=== PATIENT | male | born 1970 | race Two or more races ===

== ENCOUNTER 2025-03-16 12:00 | Emergency (ER) | payer MEDICAID, OTHER ==
[~2025-03-16] VITALS: Ht 175.3 cm; Wt 99.0 kg
[2025-03-16 12:07] VITALS: BP 138/82; PULSE 78; RESP 18; TEMP 98.5; O2SAT 97
[2025-03-16] MEDS ORDERED: TIMOLOL MAL 0.5% OPTH(EYE) SOL 5ML RIGHTEYE ONE (13:15)
[2025-03-16] MEDS ORDERED: acetaZOLAMIDE SODIUM 500 MG VL IV ONE (13:15)
--- NOTE | 2025-03-16 13:21 | ED.PDOC ---
Eye-HPI HPI Comments This is a 54-year-old male with past medical history of diabetes, hypertension dyslipidemia came to the hospital due to ride a eye pain and redness since 12 hours. Per patient, he had right eye retinal surgery retinal detachment (on 03/10 25 in [place] [facility]). He also reports of headache, nausea, vomiting, blurry vision. He denies fever, chest pain, shortness of breaths or eye trauma. Home meds: Glimepiride, atorvastatin, dulaglutide Chief Complaint: Eye Problem Time Seen by MD: 12:18 Allergies: Coded Allergies: NO KNOWN ALLERGIES (Unverified , 03/16/25) Mode of Arrival: Ambulatory Past Medical History PAST MEDICAL HISTORY: Denies Past Medical History (Other): Diabetes hypertension, dyslipidemia Surgical History: Denies all surgeries Constitutional: denies: chills, diaphoresis, fatigue, fever, malaise, sweats, weakness, others EENTM: reports: blurred vision, eye redness, tearing; denies: double vision, ear bleeding, ear discharge, ear drainage, ear pain, ear ringing, eye pain, hearing loss, mouth pain, mouth swelling, nasal discharge, nose bleeding, nose congestion, nose pain, photophobia, throat pain, throat swelling, voice changes, others Respiratory: denies: cough, hemoptysis, orthopnea, SOB at rest, shortness of breath, SOB with excertion, stridor, wheezing, others Cardiovascular: denies: chest pain, dizzy spells, diaphoresis, Dyspnea on exertion, edema, irregular heart beat, left arm pain, lightheadedness, palpitations, PND, syncope, others Gastrointestinal: denies: abdomen distended, abdominal pain, blood streaked bowels, constipated, diarrhea, dysphagia, difficulty swallowing, hematemesis, melena, nausea, poor appetite, poor fluid intake, rectal bleeding, rectal pain, vomiting, others Genitourinary: denies: burning, dysuria, flank pain, frequency, hematuria, incontinence, penile discharge, penile sore, pain, testicle pain, testicle swelling, urgency, others Neurological: denies: dizziness, fainting, headache, left sided numbness, left sided weakness, numbness, paresthesia, pre-existing deficit, right sided numbness, right sided weakness, seizure, speech problems, tingling, tremors, weakness, others Musculoskeletal: denies: back pain, gout, joint pain, joint swelling, muscle pain, muscle stiffness, neck pain, others Integumetry: denies: bruises, change in color, change in hair/nails, dryness, laceration, lesions, lumps, rash, wounds, others Allergic/Immunocompromised: denies: Difficulty Healing, Frequent Infections, Hives, Itching, others Hematologic/Lymphatic: denies: anemia, blood clots, easy bleeding, easy bruising, swollen glands, others Endocrine: denies: excessive hunger, excessive sweating, excessive thirst, excessive urination, flushing, intolerance to cold, intolerance to heat, unexplained weight gain, unexplained weight loss, others Psychiatric: denies: anxiety, bipolar disorder, depression, hopeless, panic disorder, schizophrenia, sleepless, suicidal, others Physical Exam General Appearance: No Apparent Distress, Normal HEENT: Normal ENT Inspection, Pharynx Normal, TMs Normal, Other (Right eye was red, pupils mid dilated and nonreactive to the light.) Neck: Full Range of Motion, Non-Tender, Normal, Normal Inspection Respiratory: Chest Non-Tender, Lungs Clear, No Accessory Muscle Use, No Respi ratory Distress, Normal Breath Sounds Cardiovascular: No Edema, No JVD, No Murmur, No Gallop, Normal Peripheral Pulses, Regular Rate/Rhythm Breast Exam: Deferred Gastrointestinal: No Organomegaly, Non Tender, No Pulsatile Mass, Normal Bowel Sounds, Soft Genitalia: Deferred Pelvic: Deferred Rectal: Deferred Extremities: No calf tenderness, Normal capillary refill, Normal inspection, Normal range of motion, Non-tender, No pedal edema Musculoskeletal : Apperance: Normal Neurologic: Alert, chick sexer II-XII nml as Tested, No Motor Deficits, Normal Affect, Normal Mood, No Sensory Deficits Cerebellar Function: Normal Reflexes: Normal Skin: Dry, Normal Color, Warm Lymphatic: No Adenopathy Was a procedure done? Was a procedure done?: No EENT DIFF Eye: Conjunctivitis (Acute glaucoma, recurrent retinal detachment) X-Ray, Labs, Meds, VS Vital Signs Date Time Temp Pulse Resp B/P (MAP) Pulse Ox O2 Delivery O2 Flow Rate FiO2 03/16/25 12:07 98.5 78 18 138/82 97 98.5 Time of 1ST Reevaluation: 13:20 Reevaluation 1ST: Unchanged Patient Education/Counseling: Diagnosis, Treatment, Prognosis, Need For Follow Up Family Education/Counseling: Diagnosis, Treatment, Prognosis, Need For Follow Up Comments Patient came to the hospital due to right eye pain and redness. Patient also had nausea, vomiting, headache and blurry vision of the right eye. Patient has history of retinal detachment surgery on 03/10/2025. On eye examination right eye was red, and pupil was mid dilated and nonreactive to the light. Patient was counseled for possible acute glaucoma and possible recurrent retinal detachment. Patient was given prescribed IV acetazolamide and timolol Patient later on left AMA. SEPSIS Sepsis Screen Date sepsis recognized/suspect: Mar 16, 2025 Time Sepsis recognized/suspect: 1207 Recent Procedure: No On Antibiotic Therapy: No Respiratory Rate >20: No Heart Rate >90: No Temp<36 C (96.8 F) or >38.3 C: No SBP <90 or MAP <65 mmHG: No New Acute Mental Status Change: No Is the patient on CPAP, BIPAP,: No Vital Signs Date Time Temp Pulse Resp B/P (MAP) Pulse Ox O2 Delivery O2 Flow Rate FiO2 03/16/25 12:07 98.5 78 18 138/82 97 98.5 Departure 1 Departure Time of Disposition: 13:19 Impression: Primary Impression: Retinal detachment Additional Impression: Acute glaucoma of right eye Disposition: LEFT AGAINST MEDICAL ADVICE Condition: Unstable Critical Care Note Critical Care Time?: Yes (45 min-critical care time only) Stability Stability form required: No Heart Score Heart Score: Heart Score Response (Comments) Value History N/A 0 EKG N/A 0 Age N/A 0 Risk Factors N/A 0 Troponin N/A 0 Total 0 LUCY HORNE RESDIENT Mar 16, 2025 13:21
[2025-03-16] MEDS ORDERED: PILOCARPINE HCL 1% OPTH(EYE) SOL 15ML RIGHTEYE SCH (18:00)
== END 2025-03-16 13:17 | disposition left against medical advice (07) ==
LOC: ER 12:00
DX: H33.20 Serous retinal detachment, unspecified eye (principal); H40.211 Acute angle-closure glaucoma, right eye; Z79.899 Other long term (current) drug therapy